=== PATIENT | female | born 1950 | race Caucasian/White ===

== ENCOUNTER → 2018-12-10 | Outpatient (CLI) | payer MEDICARE, OTHER ==
[~2018-12-10] MED LIST: OMNIPAQUE 350 MG/ML, 75ML BOTTLE ONE
== END | disposition home or self-care (01) ==
LOC: CFH 12:29
PROVIDERS: ATTEND Family Medicine
DX: J98.4 Other disorders of lung (principal)
CPT/HCPCS: 71260; 82565; Q9967

== ENCOUNTER → 2019-07-12 | Outpatient (CLI) | payer MEDICARE ==
[~2019-07-12] MED LIST changes: +OMNIPAQUE 350 MG/ML, 100ML BOTTLE ONE; -OMNIPAQUE 350 MG/ML, 75ML BOTTLE ONE
[2019-07-12 14:12] LABS: CREATININE 0.82 mg/dL (0.55-1.02)
[2019-07-12 16:41] LABS: ANION GAP 6 mmol/L (5-15); CALCIUM 9.2 mg/dL (8.5-10.1); CHLORIDE 108 mmol/L (98-107)
[2019-07-12 16:45] LABS: CREATININE 0.86 mg/dL (0.55-1.02)
== END | disposition home or self-care (01) ==
LOC: RAD 13:19
PROVIDERS: ATTEND Dermatology
DX: C43.4 Malignant melanoma of scalp and neck (principal); R59.9 Enlarged lymph nodes, unspecified; Z85.820 Personal history of malignant melanoma of skin
CPT/HCPCS: 36415; 70460; 70491; 80048; 82565; 83615; Q9967

== ENCOUNTER → 2019-08-25 | Outpatient (CLI) | payer MEDICARE | END | disposition home or self-care (01) | LOC: PETCFH 08:27 | PROVIDERS: ATTEND Specialist | DX: C77.0 Secondary and unspecified malignant neoplasm of lymph nodes of head, face and neck (principal); Z85.820 Personal history of malignant melanoma of skin | CPT/HCPCS: 78816; A9552 ==

== ENCOUNTER 2019-09-01 09:02 | Inpatient (IN) | payer MEDICARE ==
[2019-08-31 10:53] LABS: BASOPHILS # (AUTO) 0.04 x10^3/uL (0-0.1); BASOPHILS % (AUTO) 1 % (0-1); EOSINOPHILS # (AUTO) 0.07 x10^3/uL (0-0.4); EOSINOPHILS % (AUTO) 1 % (1-7); LYMPHOCYTES # (AUTO) 2.56 x10^3/uL (1-3.4); LYMPHOCYTES % (AUTO) 37 % (22-44); MD NO; MEAN CORPUSCULAR HGB CONC 33.3 g/dL (32.4-35.8); MEAN PLATELET VOLUME 6.3 fL (7.4-10.4); MONOCYTES # (AUTO) 0.43 x10^3/uL (0.2-0.8); MONOCYTES % (AUTO) 6 % (2-9); NEUTROPHILS # (AUTO) 3.91 x10^3/uL (1.8-6.8); NEUTROPHILS % (AUTO) 56 % (42-75); PLATELET COUNT 361 x10^3/uL (130-400); RED BLOOD COUNT 4.65 x10^6/uL (3.82-5.3); RED CELL DISTRIBUTION WIDTH 13.6 % (9.6-15.2)
[2019-08-31 11:04] LABS: ALANINE AMINOTRANSFERASE 18 U/L (12-78); ALBUMIN 3.6 g/dL (3.4-5.0); ANION GAP 7 mmol/L (5-15); CALCIUM 9.4 mg/dL (8.5-10.1); CHLORIDE 106 mmol/L (98-107); CREATININE 0.95 mg/dL (0.55-1.02)
[2019-08-31 11:07] LABS: ALKALINE PHOSPHATASE 90 U/L (45-117); BILIRUBIN,TOTAL 0.4 mg/dL (0.2-1.0); TOTAL PROTEIN 7.5 g/dL (6.4-8.2)
[~2019-09-01] VITALS: Ht 162.6 cm; Wt 50.0 kg
[2019-09-01] MEDS: LACTATED RINGERS 1,000 ML IV SCH (06:00)
[~2019-09-01 09:02] MED LIST changes: +BUSP5TAB2 PO; +MIRT30TA4 PO; +MULT1TAB60 PO; -OMNIPAQUE 350 MG/ML, 100ML BOTTLE ONE; +TRAZ50TA66 PO
[2019-09-01] MEDS ORDERED: LACTATED RINGERS 1,000 ML IV SCH (15:11)
[2019-09-01] MEDS ORDERED: ACETAMINOPHEN 500 MG TABLET PO ONE (15:30)
[2019-09-01] MEDS ORDERED: GABAPENTIN 300 MG CAPSULE PO ONE (15:30)
[2019-09-01] MEDS ORDERED: FENTANYL PF 100 MCG/2ML IV PRN (16:00)
[2019-09-01] MEDS ORDERED: hydrALAzine 20 MG/ML, 1ML IV PRN (16:00)
[2019-09-01] MEDS ORDERED: MEPERIDINE/PF 25MG/ML,1ML IVPush PRN (16:00)
[2019-09-01] MEDS ORDERED: HALOPERIDOL 5 MG/ML IV PRN (16:00)
[2019-09-01] MEDS ORDERED: OXYcodone 5 MG/5 ML ORAL.SOL UDC PO PRN (16:00)
[2019-09-01] MEDS ORDERED: PROMETHAZINE 25 MG/ML, 1ML IV PRN (16:00)
[2019-09-01] MEDS ORDERED: HYDROmorphone 1 MG/ML, 1ML INJ IVPush PRN (16:00)
[2019-09-01] MEDS ORDERED: LABETALOL 5MG/ML, 20ML IV PRN (16:00)
[2019-09-01] MEDS ORDERED: BACITRACIN OINT 500U/GM, 15 GM ONE (16:08)
[2019-09-01] MEDS ORDERED: LIDOCAINE 1%-EPI 1:100K, 20ML ONE (16:08)
[2019-09-01] MEDS ORDERED: FENTANYL PF 100 MCG/2ML ONE ×3 (16:27→18:08)
[2019-09-01] MEDS ORDERED: MIDAZOLAM 1 MG/ML, 2ML ONE (16:27)
[2019-09-01] MEDS ORDERED: ROCURONIUM 10 MG/ML,10ML ONE (16:55)
[2019-09-01] MEDS ORDERED: EPHEDRINE 50 MG/ML, 1ML ONE (17:15)
[2019-09-01] MEDS ORDERED: ONDANSETRON 2MG/ML, 2ML ONE (19:54)
[2019-09-01] MEDS ORDERED: PROPOFOL 10 MG/ML, 20ML ONE (19:54)
[2019-09-01] MEDS ORDERED: GLYCOPYRROLATE 0.2MG/1ML, 5ML ONE (19:54)
[2019-09-01] MEDS ORDERED: CEFAZOLIN 1,000 MG ONE (19:54)
[2019-09-01] MEDS ORDERED: SUCCINYLCHOLINE 20 MG/ML, 10ML ONE (19:54)
[2019-09-01] MEDS ORDERED: NEOSTIGMINE 1 MG/ML, 10ML ONE (19:54)
[2019-09-01] MEDS ORDERED: DEXAMETHASONE 4 MG/ML, 1ML ONE (19:54)
[2019-09-01] MEDS ORDERED: PROMETHAZINE 25 MG/ML, 1ML ONE (20:44)
[2019-09-01] MEDS ORDERED: HALOPERIDOL 5 MG/ML ONE (21:23)
[2019-09-01] MEDS ORDERED: HYDROmorphone 1 MG/ML, 1ML INJ ONE (21:39)
[2019-09-01] MEDS: BACITRACIN OINT 500U/GM, 28GM TP SCH (23:28)
[2019-09-01] MEDS ORDERED: ACETAMINOPHEN 650 MG SUPP PR PRN (23:30)
[2019-09-01] MEDS ORDERED: SODIUM CHLORIDE 0.9%, 500ML IV PRN (23:30)
[2019-09-01] MEDS: TRAZODONE 50MG TABLET PO SCH (23:30)
[2019-09-01] MEDS ORDERED: ACETAMINOPHEN 325 MG TABLET PO PRN (23:30)
[2019-09-01] MEDS ORDERED: HYDROmorphone 2 MG/ML, 1ML IVPush PRN (23:30)
[2019-09-02] MEDS: BUSPIRONE 5 MG TABLET PO SCH ×4 (00:26→20:48)
[2019-09-02] MEDS: MIRTAZAPINE 30 MG TABLET PO SCH ×2 (00:26→20:47)
[2019-09-02] MEDS: HYDROcodone/APAP 5/325 TABLET PO PRN ×6 (02:07→20:48)
[2019-09-02 02:09] VITALS: BP 94/58
[2019-09-02 07:30] VITALS: BP 106/61
[2019-09-02] MEDS: BACITRACIN OINT 500U/GM, 28GM TP SCH ×2 (09:04→21:00)
[2019-09-02] MEDS: MULTIVITAMIN 1 TABLET PO SCH (09:04)
[2019-09-02] MEDS: LACTATED RINGERS 1,000 ML IV SCH (11:55)
[2019-09-02 14:42] VITALS: BP 94/55
[2019-09-02] MEDS: ONDANSETRON 2MG/ML, 2ML IV PRN ×2 (16:30→20:48)
[2019-09-02 20:21] VITALS: BP 103/57
[2019-09-02] MEDS: TRAZODONE 50MG TABLET PO SCH (21:00)
[2019-09-03] MEDS: LACTATED RINGERS 1,000 ML IV SCH ×2 (00:30→12:33)
[2019-09-03] MEDS: HYDROcodone/APAP 5/325 TABLET PO PRN ×3 (02:35→12:42)
[2019-09-03 02:47] VITALS: BP 104/55
[2019-09-03 07:18] VITALS: BP 131/70
[2019-09-03] MEDS: MULTIVITAMIN 1 TABLET PO SCH (08:24)
[2019-09-03] MEDS: BUSPIRONE 5 MG TABLET PO SCH (08:24)
[2019-09-03] MEDS: ONDANSETRON 2MG/ML, 2ML IV PRN (08:26)
[2019-09-03] MEDS: BACITRACIN OINT 500U/GM, 28GM TP SCH (09:00)
[2019-09-03] MEDS ORDERED: ONDA4TAB7 PO (11:33)
[2019-09-03] MEDS ORDERED: TRAM50TA2 PO (11:34)
[2019-09-03 14:24] VITALS: BP 114/64
== END 2019-09-03 14:57 | disposition home or self-care (01) | DRG 821 ==
LOC: ORIP 14:26 → 4NE 22:26 → DCLOUNGE 09-03 14:50
PROVIDERS: ADMIT Specialist; ATTEND Specialist
PROC: 0CB90ZZ Excision of Left Parotid Gland, Open Approach (ICD-10-PCS; 2019-09-01)
PROC: 4A11X4G Monitoring of Peripheral Nervous Electrical Activity, Intraoperative, External Approach (ICD-10-PCS; 2019-09-01)
PROC: 07T20ZZ Resection of Left Neck Lymphatic, Open Approach (ICD-10-PCS; principal; 2019-09-01 16:30)
DX: C77.0 Secondary and unspecified malignant neoplasm of lymph nodes of head, face and neck (principal); Z68.1 Body mass index [BMI] 19.9 or less, adult; Z85.820 Personal history of malignant melanoma of skin; J44.9 Chronic obstructive pulmonary disease, unspecified; R63.6 Underweight
CPT/HCPCS: 36415; 80053; 85025; 86850; 86900; 88305; 88307; 88341; 88342; 93005; G0378; J0690; J1100; J1170; J2250; J2405; J2704; J2710; J3010; J3490; J0330; J1630; J7120

== ENCOUNTER 2020-10-09 08:03 | Outpatient (CLI) | payer MEDICARE ==
[~2020-10-09 08:03] MED LIST changes: +ALBU90AE2 INH; +FAMO10TA13 PO; +HYDR-2995 PO; +LEVE500T53 PO; +LORA-445 PO; +MULT-449 PO; -MULT1TAB60 PO; +NICO-587 TD; +ONDA4TAB7 PO; +OXYC1TAB14 PO; +SENN-211 PO; +TRAM50TA2 PO
== END 2020-10-09 23:59 | disposition home or self-care (01) ==
LOC: ROC 08:03
PROVIDERS: ATTEND Radiology Radiation Oncology
DX: C79.31 Secondary malignant neoplasm of brain (principal); F41.9 Anxiety disorder, unspecified; J44.9 Chronic obstructive pulmonary disease, unspecified; E86.0 Dehydration; D47.3 Essential (hemorrhagic) thrombocythemia; I10 Essential (primary) hypertension; E87.1 Hypo-osmolality and hyponatremia; F17.210 Nicotine dependence, cigarettes, uncomplicated; Z90.710 Acquired absence of both cervix and uterus
CPT/HCPCS: 99214; G0463